=== PATIENT | female | born 1985 | race African-American/Black ===

== ENCOUNTER 2017-01-03 09:28 | Inpatient (IN) ==
[2017-01-03] MEDS ORDERED: LACTATED RINGERS 1,000 ML IV ONE ×2 (10:03→13:24)
[2017-01-03 10:17] LABS: Basophils % 0.1 % (0.0-0.8); Hematocrit 32.2 VOL% (35.7-47.0); Hemoglobin 11.4 GM/DL (12.0-16.0); Immature Granulocytes % 0.7 %; Immature Granulocytes Absolute 0.08 #; Lymphocytes # 2.5 10*3/uL (1.4-4.0); Lymphocytes % 22.4 % (21.3-54.2); Mean Corpuscular HGB Conc 35.4 GM/DL (32-36); Mean Corpuscular Hemoglobin 28 PG (27-34); Mean Corpuscular Volume 79.1 FL (87-102); Monocytes # 0.5 10*3/uL (0.11-0.8); Monocytes % 4.8 % (1.7-12.7); Platelet Count 204 T/CUMM (130-400); Red Blood Count 4.07 MC/CUMM (3.8-5.5); Red Cell Distribution Width 14.9 % (9.3-17.3); White Blood Count 11.1 T/CUMM (4-12)
[2017-01-03] MEDS ORDERED: LACTATED RINGERS 1,000 ML IV SCH (10:30)
[2017-01-03 10:40] LABS: INR 0.9; PT Patient Result 9.6 SECS; Partial Thromboplastin Time 27.3 SECS (0-40)
[2017-01-03] MEDS ORDERED: ceFAZolin 2,000 MG in PREMIX 1 EACH IV ONE (10:46)
[2017-01-03] MEDS ORDERED: FAMOTIDINE 20 MG/2 ML VIAL IV ONE (10:46)
[2017-01-03] MEDS ORDERED: CITRIC ACID/SODIUM CITRATE 30 ML UDCUP PO ONE (10:46)
[2017-01-03 10:47] LABS: Albumin 2.9 G/DL (3.4-5.0); Bilirubin,Total 0.5 MG/DL (0.2-1.0); Calcium 8.5 MG/DL (8.5-10.1); Potassium 3.6 MMOL/L (3.5-5.1); Total Protein 6.8 G/DL (6.4-8.3); Uric Acid 4.1 MG/DL (2.6-6.0)
[2017-01-03 10:57] LABS: Apearance,Urine CLEAR (Clear); Bacteria,Urine Occasional /HPF (Few); Bilirubin,Urine Negative (Negative); Blood, Urine Negative (Negative); Glucose,Urine (UA) Negative (Negative); Ketones,Urine Negative (Negative); Mucus,Urine Occasional /LPF (Occasional); Nitrite,Urine Negative (Negative); Protein,Urine Negative; RBC,Urine <1 /HPF (0-4); Squamous Epithelial Cell,Urine Occasional /HPF (0-10); Urine Color Straw (Yellow); Urine Specific Gravity 1.005 (1.001-1.035); Urine Urobilinogen < 2.0 EU/DL (0.2-1.0); WBC,Urine <1 /HPF (0-6)
[2017-01-03] MEDS ORDERED: TERBUTALINE 1 MG/1 ML VIAL SUBCUT ONE ×2 (11:05→11:31)
[2017-01-03] MEDS ORDERED: OXYTOCIN 10 UNIT/ML VIAL IM ONE (11:29)
[2017-01-03] MEDS ORDERED: OXYTOCIN/LR 30 UNIT/1,000 ML BAG IV ONE (11:29)
[2017-01-03] MEDS ORDERED: CITRIC ACID/SODIUM CITRATE 30 ML UDCUP ONE (11:31)
[2017-01-03] MEDS ORDERED: PHENYLEPHRINE 1 MG/10 ML SYRINGE IV ONE (11:50)
[2017-01-03] MEDS ORDERED: ONDANSETRON 4 MG/2 ML VIAL ONE (11:50)
--- NOTE | 2017-01-03 12:54 | OB/GYN History & Physical ---
History of Present Illness Chief complaint: PIH, 38 weeks History of present illness: Ms. Clark is a 31 year old female 2 para 1 EDC is 01/16/2017 at 38 weeks and 1 day who presented with for routine NST. NST was nonreactive, biophysical profile was 6 out of 8, with a calcification of the placenta and oligohydramnios. In light of these findings with the elevation of her blood pressure, discomfort in her abdomen, and also in a biophysical profile with the only go this patient was scheduled for repeat section. Risks benefits were thoroughly discussed with this patient and her family. heart tones demonstrated category 2 with variables and occasional late decelerations that returned back to baseline with reactivity. 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 General appearance: no acute distress - Antepartum / Post Antepartum Exam Cervix - Dilatation: Close Effacement: Thick Station: -3 - Head Head exam: Present: normal inspection - Eye Eye exam: Present: EOMI Pupils: Present: TEOFILO - ENT ENT exam: Present: normal exam - Neck Neck exam: Present: normal inspection - Respiratory Respiratory exam: Present: clear to auscultation bilaterally - Breast Breasts: as per HPI Menstruation: as per HPI - Cardiovascular Cardiovascular exam: Present: regular rate and rhythm - GI/Abdominal GI/Abdominal exam: Present: normal bowel sounds - Extremities Exam Extremities exam: Present: normal inspection - Neurological Exam Neurological exam: Present: alert, oriented X3 - Psychiatric Psychiatric exam: Present: normal affect - Skin Skin exam: Present: normal color Assessment and Plan (1) PIH ( induced hypertension) Status: Acute Current Visit: Yes (2) Oligohydramnios Status: Acute Assessment and plan: 38 weeks with oligohydramnios, biophysical profile demonstrated 6 out of 8. These findings patient is being scheduled for repeat risks benefits were thoroughly discussed. Current Visit: Yes (3) Status post repeat low transverse section Status: Acute Current Visit: Yes Results - Labs CBC & BMP: 01/03/17 10:07 01/03/17 10:08
[2017-01-03] MEDS ORDERED: fentaNYL 100 MCG/2 ML VIAL ONE (12:55)
[2017-01-03] MEDS ORDERED: MORPHINE 10 MG/10 ML VIAL ONE (12:56)
--- NOTE | 2017-01-03 12:57 | Operative Note ---
Date of procedure: 01/03/17 Procedure: Preoperative diagnosis oligohydramnios, PIH, 38 weeks, biophysical profile that demonstrated to 6 out of 8 Postoperative diagnosis: Same Anesthesia:[] Regional Estimated blood loss: [] 250 Surgeon: Dr. Coley Findings: [] Oligohydramnios, male , 5 lbs. 2 ounces, Apgars was 8 at 1 minute and 9 at 5 minutes, the time was 12:23 PM. Complications: None Procedure: Low transverse The patient was taken to the operating suite heart tones were obtained prior to and after regional anesthesia was obtained. She was placed in supine position her abdomen was prepped and draped in usual manner for major abdominal surgery. Through an abdominal incision the skin, subcutaneous, fascial layer and peritoneal the abdomen was entered. The bladder flap was created and a low transverse incision was made.. Fluid was minimal demonstrating oligohydramnios, mild meconium staining, x, Apgars, the placenta was delivered and sent to lab for further evaluation. Injected with intrauterine Pitocin. The first layer of the uterus was closed with #1 Vicryl in a continuous locking manner. Close to imbricate the first layer with #1 Vicryl. The peritoneum was approximated with #2-0 Vicryl.[] All the last sponges and instruments were accounted for -2. ) #2-0 Vicryl. Fascia was approximated with #0-0 Maxon.. The skin was approximated with renee. She tolerated procedure well and was taken to recovery room in stable condition. Surgeon / Physician: Alejandra Coley Results - Labs CBC & BMP: 01/03/17 10:07 01/03/17 10:08 Discharge Plan - Discharge Medications No Action Promethazine Tab [Phenergan Tab] 25 mg PO Q6H Vit No.124/Iron/Folic [ Vitamin Tablet] 1 tablet PO DAILY - Follow Up or Referral - Forms/Instructions
[2017-01-03] MEDS ORDERED: ACETAMINOPHEN 325 MG TABLET PO PRN (12:58)
[2017-01-03] MEDS ORDERED: RHO(D) IMMUNE GLOBULIN 300 MCG SYRINGE IM ONE (12:58)
[2017-01-03] MEDS ORDERED: ONDANSETRON 4 MG/2 ML VIAL IV PRN (12:58)
[2017-01-03] MEDS ORDERED: OXYTOCIN/LR 20 UNIT/1,000 ML BAG IV ONE (12:58)
[2017-01-03 13:04] LABS: Cord Venous Blood HCO3 21.6 MMOL/L; Cord Venous Blood PCO2 48.8 MMHG; Cord Venous Blood PO2 31.8
--- NOTE | 2017-01-03 13:11 | Anesthesia Post-Op ---
Anesthesia Post OP - Post Ansesthetic Evaluation Patient seen in post op: Yes Resp: within normal limits CV: within normal limits Mental: within normal limits Temp: within normal limits Noot-Mk-Ufuksjtle: within normal limits Nausea and Vomiting: within normal limits Pain: within normal limits
[2017-01-03 13:28] LABS: Apearance,Urine CLEAR (Clear); Bilirubin,Urine Negative (Negative); Blood, Urine Negative (Negative); Glucose,Urine (UA) Negative (Negative); Ketones,Urine 5 mg/dL (Negative); Mucus,Urine Occasional /LPF (Occasional); Nitrite,Urine Negative (Negative); Protein,Urine Negative; Squamous Epithelial Cell,Urine Occasional /HPF (0-10); Urine Color Straw (Yellow); Urine Specific Gravity 1.004 (1.001-1.035); Urine Urobilinogen < 2.0 EU/DL (0.2-1.0); WBC,Urine <1 /HPF (0-6)
[2017-01-03] MEDS ORDERED: hydrALAZINE 20 MG/1 ML VIAL IV PRN (16:49)
[2017-01-03] MEDS: LACTATED RINGERS 1,000 ML IV SCH ×2 (16:58→21:44)
[2017-01-03] MEDS: hydrALAZINE 20 MG/1 ML VIAL IV PRN ×2 (17:06→17:15)
--- NOTE | 2017-01-03 17:55 | Ultrasound Report ---
Exam: OB ultrasound Reason for exam: Decreased movement Number of fetus: 1 Transvaginal scanning was not performed. Sac info: Placenta location: anterior. Amniotic fluid volume: Low normal and range. ROSALIO: 23.3 cm Fetus Anatomy: position: Cephalic Normal Maternal: Uterus and ovaries are unremarkable No gross congenital abnormalities. Visualization: anatomy is suboptimally visualized Biophysical profile was performed on same day with score of 8, please see dedicated report. ANOMALIES MAY BE PRESENT BUT NOT DETECTED. Impression: Low normal amniotic fluid index Viable intrauterine gestation with no gross anomalies PROCEDURE INTERPRETED AT [facility] DEPARTMENT OF RADIOLOGY Final Report Signed by: Surendra Acosta
[2017-01-03] MEDS ORDERED: PROMETHAZINE 25 MG/1 ML VIAL IM PRN (18:09)
[2017-01-03] MEDS: DOCUSATE SODIUM 100 MG CAPSULE PO SCH (21:37)
[2017-01-03] MEDS: IBUPROFEN 800 MG TABLET PO PRN (21:37)
[2017-01-04 00:12] LABS: Basophils % 0.1 % (0.0-0.8); Hematocrit 32.7 VOL% (35.7-47.0); Hemoglobin 11.3 GM/DL (12.0-16.0); Immature Granulocytes % 0.5 %; Immature Granulocytes Absolute 0.08 #; Lymphocytes # 1.9 10*3/uL (1.4-4.0); Lymphocytes % 13.2 % (21.3-54.2); Mean Corpuscular HGB Conc 34.6 GM/DL (32-36); Mean Corpuscular Hemoglobin 28 PG (27-34); Mean Platelet Volume 11.7 FL (9.6-12.0); Monocytes # 0.8 10*3/uL (0.11-0.8); Monocytes % 5.2 % (1.7-12.7); Neutrophils # 11.9 10*3/uL (1.4-7.4); Platelet Count 208 T/CUMM (130-400); Red Blood Count 4.09 MC/CUMM (3.8-5.5); Red Cell Distribution Width 15.2 % (9.3-17.3); White Blood Count 14.7 T/CUMM (4-12)
[2017-01-04] MEDS: LACTATED RINGERS 1,000 ML IV SCH (06:20)
--- NOTE | 2017-01-04 09:43 | OB/GYN Progress Note ---
Assessment and Plan (1) Status post repeat low transverse section Status: Acute Assessment and plan: Initiate routine postop orders. 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 Bonding well with . Exam LEARNING CONSULTANT - Constitutional Vitals: Vital Signs Temp Pulse Resp BP Pulse Ox 01/04/17 08:10 97.1 F L 106 H 18 133/85 98 01/04/17 07:50 20 01/04/17 03:52 98.4 F 74 17 130/85 98 01/04/17 02:57 18 01/04/17 02:00 17 01/04/17 01:00 17 01/03/17 23:51 97 F L 83 18 126/84 98 01/03/17 22:56 17 01/03/17 21:57 18 01/03/17 19:52 18 01/03/17 19:49 97.3 F L 85 18 134/83 98 01/03/17 17:43 101 H 19 132/77 General appearance: no acute distress - Antepartum / Post Post Exam Breast: bilateral: normal Abdomen obstetrics: Present: bowel sounds normal Uterus exam: Present: enlarged - Gyencological / Post Surgical Post Surgical Exam Lungs: bilateral: normal Chest: Normal S1, Normal S2 Extremities LEARNING CONSULTANT: Present: normal Abdomen obstetrics progress note: Present: normal appearance Incision OB: Present: normal, intact - Respiratory Respiratory exam: Present: clear to auscultation bilaterally - Cardiovascular Cardiovascular exam: Present: regular rate and rhythm - GI/Abdominal GI/Abdominal exam: Present: normal bowel sounds, soft - Extremities Exam Extremities exam: Present: normal inspection - Neurological Exam Neurological exam: Present: alert, oriented X3 - Psychiatric Psychiatric exam: Present: normal affect, normal mood - Skin Skin exam: Present: normal color, warm Results - Labs CBC & BMP: 01/04/17 00:05 01/03/17 10:08
[2017-01-04] MEDS: SIMETHICONE CHEW 80 MG TABLET PO PRN ×2 (09:57→20:40)
[2017-01-04] MEDS: MAGNESIUM HYDROXIDE SUSP 30 ML UDCUP PO PRN (09:57)
[2017-01-04] MEDS: DOCUSATE SODIUM 100 MG CAPSULE PO SCH ×2 (09:57→20:40)
[2017-01-04] MEDS: MULTIVITAMIN (PRENATAL) TABLET PO SCH (09:57)
[2017-01-05] MEDS: MAGNESIUM HYDROXIDE SUSP 30 ML UDCUP PO PRN (08:26)
[2017-01-05] MEDS: MULTIVITAMIN (PRENATAL) TABLET PO SCH (08:26)
[2017-01-05] MEDS: DOCUSATE SODIUM 100 MG CAPSULE PO SCH ×2 (08:26→21:10)
[2017-01-05] MEDS: SIMETHICONE CHEW 80 MG TABLET PO PRN (08:26)
--- NOTE | 2017-01-05 12:19 | Pathology Report from [facility] ---
[facility] ACCESSION # : [id number] PATIENT NAME : Lyndsey Hernandez. ORDERING DR : JOSE VARGAS MD CLINICAL HX: IUP @ 38.1 wks, olighydramnios, IUGR inducted HTN, Repeat C/S POST-OP DX: Same SPECIMEN INFO: Placenta GROSS DESCRIPTION: Received fresh labeled with the patients name and consists of a 320 gram placenta which measures 17.0 x 17.0 x 2.0 cm. membranes are pink-jade and translucent. The umbilical cord measures 23.5 cm, contains three vessels and centrally inserted. The surface is blue-wade and intact. The maternal surface is red-wade and intact with a 1.5 x 1.0 cm area of plaque noted upon sectioning. Sections submitted: A membranes and cord, B and maternal surfaces. DIAGNOSIS FOR LYNDSEY HERNANDEZ: PLACENTA, 38.1 WEEK GESTATIONAL AGE, SECTION: Mature placenta, 320 gms trimmed weight, <10th percentile for provided gestational age. Acute chorioamnionitis. Placental infarct. Trivascular umbilical cord, 23.5 cm in length. COLLECTED DATE: 01/04/2017 [facility] REPORT DATE: 01/05/2017 ELECTRONICALLY SIGNED BY: Kristal Tan M.D. 01/05/2017 - 10:38:20 [facility]
--- NOTE | 2017-01-05 15:40 | OB/GYN Progress Note ---
Assessment and Plan (1) PIH ( induced hypertension) Status: Acute Current Visit: Yes (2) Oligohydramnios Status: Acute Assessment and plan: 38 weeks with oligohydramnios, biophysical profile demonstrated 6 out of 8. These findings patient is being scheduled for repeat risks benefits were thoroughly discussed. Current Visit: Yes (3) Status post repeat low transverse section Status: Acute Assessment and plan: Initiate routine post-op orders. 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 Bonding well with infant. Exam VALVE STEAMER - Constitutional Vitals: Vital Signs Temp Pulse Resp BP Pulse Ox 01/05/17 15:00 18 01/05/17 14:00 20 01/05/17 13:00 20 01/05/17 12:00 20 01/05/17 11:16 98.1 F 89 18 139/88 98 01/05/17 11:00 20 01/05/17 10:00 20 01/05/17 09:00 20 01/05/17 08:00 97.2 F L 90 20 140/94 98 01/05/17 07:00 18 01/05/17 04:00 97.3 F L 96 H 20 123/93 97 01/05/17 03:00 10 L 01/05/17 02:00 18 01/05/17 00:30 97.5 F L 104 H 18 142/93 99 01/04/17 23:00 18 01/04/17 20:00 98.2 F 109 H 20 123/79 97 01/04/17 16:00 98.8 F 119 H 16 139/94 98 General appearance: no acute distress - Antepartum / Post Post Exam Abdomen obstetrics: Present: bowel sounds normal Vagina: Present: normal moisture (light lochia rubra), discharge Uterus exam: Present: enlarged (FF ML) - Gyencological / Post Surgical Post Surgical Exam Lungs: bilateral: normal Chest: Normal S1, Normal S2 Abdomen obstetrics progress note: Present: normal appearance, soft Incision OB: Present: intact - Head Head exam: Present: normal inspection - Eye Pupils: Present: TEOFILO - Neck Neck exam: Present: normal inspection - Respiratory Respiratory exam: Present: clear to auscultation bilaterally - Cardiovascular Cardiovascular exam: Present: regular rate and rhythm - GI/Abdominal GI/Abdominal exam: Present: normal bowel sounds, soft - Extremities Exam Extremities exam: Present: normal inspection - Neurological Exam Neurological exam: Present: alert, oriented X3 - Psychiatric Psychiatric exam: Present: normal affect, normal mood - Skin Skin exam: Present: normal color, warm Results - Labs CBC & BMP: 01/04/17 00:05 01/03/17 10:08
[2017-01-05] MEDS: IBUPROFEN 800 MG TABLET PO PRN (21:10)
--- NOTE | 2017-01-06 08:29 | Discharge Summary ---
Hospital Course - Hospital Course Hospital Course: Ms. Clark presented to the labor department for evaluation of status which was non-reactuve and previous section. A repeat section was performed with a viable noted. The patient has followed a normal postoperative course and she has done well. Her incision is well approximated without signs of infection. Her fundus is firm and midline. She is voiding without difficulty. Her vital signs and lab values are stable. She is ambulating without difficulty. Bowel sounds are positive and she has had a normal bowel movement. She is bonding well with her infant. Contraception options have been discussed with this patient. She will be discharged home prescriptions for pain and a follow-up appointment in our office. Diagnosis - Discharge Diagnosis (1) Status post repeat low transverse section Status: Acute Specialty Discharge - Follow Up or Referrals Follow up with: Alejandra Coley MD [Physician] - 2 Weeks Discharge Plan - Discharge Data Disposition: Disch To Home/Self Care Condition at Discharge: Stable Discharge Diet: advance to your usual diet, regular diet Activity: increase activity as tolerated, no lifting, no prolonged standing Hygiene: may shower Weight Bearing at Discharge: partial weight bearing Driving: not until seen by doctor Contact your physician if you experience:: fever over 101, pain uncontrolled by pain medications - Discharge Medications New HYDROcodone/ACETAMIN 5-325 [[place] 5-325] 2 tablet PO Q4H PRN #30 tablet PRN Reason: Pain Moderate (4-7) NIFEdipine XL TAB [Procardia Xl] 30 mg PO DAILY #30 tablet Ibuprofen Tab [Motrin Tab] 800 mg PO Q8H PRN #30 tablet PRN Reason: Pain Severe (8-10) No Action Promethazine Tab [Phenergan Tab] 25 mg PO Q6H Vit No.124/Iron/Folic [ Vitamin Tablet] 1 tablet PO DAILY - Follow Up or Referral Follow Up: Alejandra Coley MD [Physician] - 2 Weeks - Forms/Instructions Exam - Constitutional Vitals: Period Temp Pulse Resp BP Sys/Wall Pulse Ox Last 24 Hr 97.0 F-98.1 F 81-115 18-20 129-144/81-94 98-99 General appearance: no acute distress - Head Head exam: Present: normal inspection - Respiratory Respiratory exam: Present: clear to auscultation bilaterally - Cardiovascular Cardiovascular exam: Present: regular rate and rhythm - GI/Abdominal GI/Abdominal exam: Present: normal bowel sounds, soft - Extremities Exam Extremities exam: Present: normal inspection - Back Exam Back exam: Present: normal inspection - Neurological Exam Neurological exam: Present: alert, oriented X3 - Psychiatric Psychiatric exam: Present: normal affect, normal mood - Skin Skin exam: Present: normal color, warm DS: Provider Date of admission: 01/03/17 10:46 Primary care physician: . No PCP Attending physician on admission: Alejandra Coley MD Consults: 01/03/17 10:46 Consult to Anesthesiology [CONS] Routine Consulting Provider: Reason for Anesthesiology: Pre-op Clearance 01/03/17 12:58 Consult to Speech Therapy Director [CONS] Routine Consult Speech Therapy Director: Breast Feeding Discharging clinician: Junie Schmitz CNM Expected date of discharge: 01/06/17
[2017-01-06] MEDS: MULTIVITAMIN (PRENATAL) TABLET PO SCH (08:32)
[2017-01-06] MEDS: DOCUSATE SODIUM 100 MG CAPSULE PO SCH (08:32)
[2017-01-06 08:57] VITALS: BP 145/98
[2017-01-06] MEDS ORDERED: DIPH/TET/ACEL PERT BOOSTER VACCINE 0.5 ML VIAL IM ONE (11:30)
== END 2017-01-06 13:10 | disposition home or self-care (01) | DRG 540 ==
LOC: N.LDOUT 09:28 → N.LD 09:32 → N.OB 01-04 07:50
PROVIDERS: ADMIT Obstetrics & Gynecology; ATTEND Obstetrics & Gynecology
PROC: LDCSECT (ICD-10-PCS; 2017-01-03 11:30)